=== PATIENT | male | born 1975 | race Caucasian/White ===

== ENCOUNTER 2018-02-02 15:06 | Emergency (ER) | payer OTHER ==
[~2018-02-02] VITALS: Ht 175.2 cm; Wt 95.3 kg
[~2018-02-02 15:06] MED LIST: CIPROFLOXACIN500 MG PO; HYDROCODONE BIT1 T11 PO; KEFLEX500 MG PO; MOTRIN800 MG PO; NKHM; TRAMADOL HCL50 MG PO
[2018-02-02] MEDS ORDERED: TAMIFLU 75MG CA75 MG PO (15:56)
== END 2018-02-02 15:59 | disposition home or self-care (01) ==
LOC: ED 15:06
DX: J10.1 Influenza due to other identified influenza virus with other respiratory manifestations (principal); Z98.890 Other specified postprocedural states; Z79.899 Other long term (current) drug therapy

== ENCOUNTER 2018-12-07 15:09 | Emergency (ER) | payer OTHER ==
[~2018-12-07] VITALS: Ht 177.8 cm; Wt 95.3 kg
[~2018-12-07 15:09] MED LIST changes: +TAMIFLU 75MG CA75 MG PO
== END 2018-12-07 20:38 | disposition home or self-care (01) ==
LOC: ED 15:09
DX: M25.561 Pain in right knee (principal); W18.40XA Slipping, tripping and stumbling without falling, unspecified, initial encounter; Y93.89 Activity, other specified; Y92.89 Other specified places as the place of occurrence of the external cause; Y99.8 Other external cause status

== ENCOUNTER 2021-08-10 10:28 | Emergency (ER) | payer SELFPAY ==
[~2021-08-10] VITALS: Ht 177.8 cm; Wt 99.8 kg
== END 2021-08-10 12:33 | disposition home or self-care (01) ==
LOC: ED 10:28
DX: U07.1 COVID-19 (principal)